=== PATIENT | male | born 1970 | race Caucasian/White ===

== ENCOUNTER → 2022-07-29 | Outpatient (REF) | payer OTHER ==
[~2022-07-29] MED LIST: CARD120C3 PO; FLOM0.4C39 PO; WARF-22 PO
[2022-07-29 18:11] LABS: BLOOD UREA NITROGEN 15 MG/DL (7-18); CREATININE FOR GFR 1.15 MG/DL (0.70-1.30); GLOMERULAR FILTRATION RATE > 60.0 (>56)
== END ==
LOC: M LAB REF 17:00
PROVIDERS: ATTEND Internal Medicine Pulmonary Disease
DX: I27.82 Chronic pulmonary embolism (principal)

== ENCOUNTER → 2022-08-31 | Outpatient (CLI) | payer OTHER ==
[~2022-08-31] MED LIST changes: +ISOVUE-370 76% 100ML VIAL As Ordered ONE
== END ==
LOC: M RAD 14:48
PROVIDERS: ATTEND Internal Medicine Pulmonary Disease
DX: I27.82 Chronic pulmonary embolism (principal)
CPT/HCPCS: 71275; Q9967

== ENCOUNTER → 2023-07-12 | Outpatient (CLI) | payer OTHER ==
[~2023-07-12] MED LIST changes: +E-Z-GAS II EFFERVESCENT PACKET (SODIUM BICARB./CITRIC ACID/SIMETHICONE) As Ordered ONE; +E-Z-HD 98% w/w 340GM SUSP BTL As Ordered ONE; +E-Z-PAQUE 96% w/w SUSP 176GM BTL As Ordered ONE; -ISOVUE-370 76% 100ML VIAL As Ordered ONE; +ROSU40TA4 PO; +TRAZ-257 PO; +[UNRECOGNIZED DRUG - CODE] SC; +[UNRECOGNIZED DRUG - OTHER]
== END ==
LOC: M RAD 09:12
PROVIDERS: ATTEND Physician Assistant Medical
DX: R13.10 Dysphagia, unspecified (principal); K44.9 Diaphragmatic hernia without obstruction or gangrene; K22.2 Esophageal obstruction; Q39.4 Esophageal web; K21.9 Gastro-esophageal reflux disease without esophagitis

== ENCOUNTER 2023-07-25 12:15 | Day surgery (SDC) | payer OTHER ==
[~2023-07-25] VITALS: Ht 172.7 cm; Wt 96.2 kg
[~2023-07-25 12:15] MED LIST changes: -E-Z-GAS II EFFERVESCENT PACKET (SODIUM BICARB./CITRIC ACID/SIMETHICONE) As Ordered ONE; -E-Z-HD 98% w/w 340GM SUSP BTL As Ordered ONE; -E-Z-PAQUE 96% w/w SUSP 176GM BTL As Ordered ONE; +NS 1,000 ML IV ONE
[2023-07-25] MEDS ORDERED: MIDAZOLAM INJ 2MG/2ML VIAL IV PRN (13:25)
[2023-07-25] MEDS ORDERED: propofoL 200 MG/20 ML VIAL As Ordered ONE ×2 (14:06→14:33)
[2023-07-25] MEDS ORDERED: LIDOCAINE 2% 100MG/5ML SDV (FOR ANES.) As Ordered ONE (14:06)
[2023-07-25 14:32] VITALS: TEMP 97.8
[2023-07-25 14:48] VITALS: BP 113/71; O2SAT 97
== END 2023-07-25 14:48 | disposition home or self-care (01) ==
LOC: M OPP 12:15
PROVIDERS: ATTEND Internal Medicine Gastroenterology
DX: K44.9 Diaphragmatic hernia without obstruction or gangrene (principal); K92.89 Other specified diseases of the digestive system; Q39.4 Esophageal web; K22.2 Esophageal obstruction; I48.91 Unspecified atrial fibrillation; G47.30 Sleep apnea, unspecified; Z99.89 Dependence on other enabling machines and devices; Z79.01 Long term (current) use of anticoagulants; Z79.02 Long term (current) use of antithrombotics/antiplatelets; Z79.51 Long term (current) use of inhaled steroids; Z79.899 Other long term (current) drug therapy

== ENCOUNTER → 2024-12-03 | Outpatient (CLI) | payer OTHER ==
[~2024-12-03] MED LIST changes: +ISOVUE-370 76% 100ML VIAL As Ordered ONE; -NS 1,000 ML IV ONE; -ROSU40TA4 PO; +ROSU40TA81 PO
== END ==
LOC: M RAD 14:27
PROVIDERS: ATTEND Internal Medicine
DX: Z86.711 Personal history of pulmonary embolism (principal); K44.9 Diaphragmatic hernia without obstruction or gangrene; I51.7 Cardiomegaly; J98.11 Atelectasis
CPT/HCPCS: 71275; Q9967

== ENCOUNTER 2025-09-14 16:54 | Emergency (ER) | payer OTHER ==
[~2025-09-14] VITALS: Ht 172.7 cm; Wt 94.8 kg
[~2025-09-14 16:54] MED LIST changes: -FLOM0.4C39 PO; -ISOVUE-370 76% 100ML VIAL As Ordered ONE; +TAMS-18 PO
[2025-09-14] MEDS ORDERED: LOVE0.8I3 (17:06)
[2025-09-14] MEDS: ASPIRIN 81 MG CHEWABLE TABLET PO ONE (17:32)
[2025-09-14 17:38] LABS: BASO # 0.1 10^3/uL (0.0-0.2); BASO % 0.7 % (0.0-1.0); EOS # 0.1 10^3/uL (0.0-0.5); EOS % 1.5 % (0.0-3.0); LYMPH # 2.2 10^3/uL (1.5-5.0); LYMPH % 32.6 % (24.0-44.0); MONO # 0.6 10^3/uL (0.0-0.8); MONO % 9.1 % (2.0-8.0); NEUTROPHILS # 3.7 10^3/uL (1.5-8.5); NEUTROPHILS % 56.0 % (36.0-66.0); PLATELET COUNT, AUTOMATED 274 10^3/uL (150-450)
[2025-09-14 18:07] LABS: INR 0.9
[2025-09-14 18:14] LABS: CK-MB VALUE MASS 2.5 NG/ML (<3.6)
[2025-09-14 18:17] LABS: ALT/SGPT 32 U/L (7.0-40); AST/SGOT 19 U/L (<34); CALCIUM LEVEL 8.6 MG/DL (8.5-10.1); CARBON DIOXIDE LEVEL 26 MMOL/L (20-31); CHLORIDE LEVEL 105 MMOL/L (98-107); CREATININE FOR GFR 0.96 MG/DL (0.70-1.30); GLOMERULAR FILTRATION RATE > 90.0 (>56); POTASSIUM SERUM 4.1 MMOL/L (3.5-5.1); SODIUM LEVEL 141 MMOL/L (136-145)
[2025-09-14 18:18] LABS: FREE T4 1.14 NG/DL (0.89-1.76)
[2025-09-14 18:24] LABS: CPK CREATINE PHOSPHOKINASE 179 U/L (46-171); MB/CK RELATIVE INDEX 1.39 (< OR =4)
[2025-09-14] MEDS ORDERED: ISOVUE-370 76% 100 ML VIAL As Ordered ONE (18:32)
[2025-09-14 19:12] LABS: CK-MB VALUE MASS 2.6 NG/ML (<3.6)
[2025-09-14 19:14] LABS: CPK CREATINE PHOSPHOKINASE 164 U/L (46-171); MB/CK RELATIVE INDEX 1.58 (< OR =4)
[2025-09-14 21:25] VITALS: BP 124/72; TEMP 96.6; O2SAT 95
== END 2025-09-14 21:41 | disposition home or self-care (01) ==
LOC: M ED 16:54
DX: R07.9 Chest pain, unspecified (principal); I48.91 Unspecified atrial fibrillation; F43.10 Post-traumatic stress disorder, unspecified; Z86.711 Personal history of pulmonary embolism; M19.90 Unspecified osteoarthritis, unspecified site; F40.00 Agoraphobia, unspecified; M43.10 Spondylolisthesis, site unspecified; Z79.899 Other long term (current) drug therapy; Z88.5 Allergy status to narcotic agent
CPT/HCPCS: 36415; 71275; 80048; 80076; 82550; 82553; 84439; 84443; 84484; 85025; 85610; 85730; 93005; 93041; 94760; 99285; Q9967